=== PATIENT | male | born 1955 ===

== ENCOUNTER 2017-02-26 11:04 | Emergency (ER) | payer OTHER ==
[2017-02-26 12:52] LABS: BASO % 0.3 % (0.0-2.0); EOS # 0.2 K/uL (0.0-0.7); EOS % 1.9 % (0.0-4.0); HEMOGLOBIN 14.5 g/dL (12.0-18.0); LYMPH # 2.4 K/uL (1.0-4.3); LYMPH % 26.2 % (20.0-40.0); MEAN CELL VOLUME 85.6 fL (80.0-94.0); MEAN CORPUSCULAR HGB CONC 33.9 g/dL (33.0-37.0); MEAN PLATELET VOLUME 9.7 fL (7.2-11.7); MONO # 0.7 K/uL (0.0-0.8); MONO % 7.8 % (0.0-10.0); NEUT # 5.7 K/uL (1.8-7.0); NEUT % 63.8 % (50.0-75.0); RED CELL DISTRIBUTION WIDTH 13.9 % (11.5-14.5)
[2017-02-26 12:57] LABS: URINE BILIRUBIN NEGATIVE (NEGATIVE); URINE BLOOD 1+ (NEGATIVE); URINE CLARITY Clear (Clear); URINE COLOR Yellow (YELLOW); URINE GLUCOSE (UA) NORMAL (Normal); URINE LEUKOCYTE ESTERASE NEG Leu/uL (Negative); URINE NITRATE NEGATIVE (NEGATIVE); URINE PROTEIN 1+ mg/dL (NEGATIVE); URINE UROBILINOGEN NORMAL mg/dL (0.2-1.0)
--- NOTE | 2017-02-26 12:59 | C.PDOC ---
History Of Present Illness 61 y/o male presents to the ED c/o left rib cage and left shoulder pain for three days . The patient denies injuries. Patient sts he was seen by PMD yesterday, got Rx for Ibuprofen 600 mg without improvement. Time Seen by Provider: 02/26/17 11:30 Chief Complaint (Nursing): Rib Injury History Per: Patient Onset/Duration Of Symptoms: Days Current Symptoms Are (Timing): Still Present Additional History Per: Patient Past Medical History Reviewed: Historical Data, Nursing Documentation, Vital Signs Vital Signs: Last Vital Signs Temp 98.5 F 02/26/17 15:44 Pulse 83 02/26/17 15:44 Resp 20 02/26/17 15:44 BP 120/75 02/26/17 15:44 Pulse Ox 100 02/26/17 18:13 - Medical History PMH: Diabetes, HTN Denies: Chronic Kidney Disease Surgical History: No Surg Hx - [facility] Procedures DILATION OF 1 COR ART WITH DRUG-ELUT INTRA, PERC APPROACH (01/05/16) MEASURE OF CARDIAC SAMPL & PRESSURE, L HEART, PERC APPROACH (01/05/16) PLAIN RADIOGRAPHY OF LEFT HEART USING LOW OSMOLAR CONTRAST (01/05/16) Family History: States: No Known Family Hx - Social History Hx Tobacco Use: Yes (heavy smoker over 20 years >10 cig per day) Hx Alcohol Use: No Hx Substance Use: No - Immunization History Hx Tetanus Toxoid Vaccination: No Hx Influenza Vaccination: No Hx Pneumococcal Vaccination: No Review Of Systems Except As Marked, All Systems Reviewed And Found Negative. Cardiovascular: Negative for: Chest Pain Respiratory: Positive for: Other (pain of the left rib cage ). Negative for: Cough, Shortness of Breath Musculoskeletal: Positive for: Shoulder Pain (left ) Neurological: Negative for: Numbness Physical Exam - Physical Exam Appears: Non-toxic, No Acute Distress Skin: Warm, Dry Head: Atraumatic, Normacephalic Eye(s): bilateral: Normal Inspection Oral Mucosa: Moist Neck: Supple Chest: Symmetrical, No Deformity, No Tenderness, Other (non reproducible ) Cardiovascular: Rhythm Regular Respiratory: Normal Breath Sounds, No Rales, No Rhonchi Back: No CVA Tenderness, No Vertebral Tenderness, No Paraspinal Tenderness Extremity: Capillary Refill (2<sec.) Neurological/Psych: Oriented x3 Gait: Steady ED Course And Treatment - Laboratory Results Result Diagrams: 02/26/17 12:40 02/26/17 12:40 ECG Rhythm: Sinus Rhythm ECG Interpretation: No Acute Changes O2 Sat by Pulse Oximetry: 100 (RA) - Other Rad ribs with chest xray X-Ray: Viewed By Me, Read By Radiologist Interpretation: Accession No. : [id number]. Patient Name / ID : KYM Woods [id number]. Exam Date : 02/26/2017 12:18:25 ( Approved ). Study Comment : Sex / Age : M / 61Y. Creator : Ilene Gonzalez. Dictator : Ilene Gonzalez. Retail Pos Specialist : Property Specialist : Ilene Abad. Approver2 : Report Date : 02/26/2017 13:40:40. My Comment : . PROCEDURE: Radiographs of the Chest and Left Ribs. HISTORY: atraumatic pain. COMPARISON: None available. TECHNIQUE: Frontal radiograph of the chest and multiple oblique radiographs of the left ribs were obtained. FINDINGS: LEFT RIBS: No fracture or focal lesion visualized. LUNGS: Clear. PLEURA: No pneumothorax or pleural fluid. CARDIOVASCULAR: Probable top- normal heart size. No pulmonary vascular congestion. OTHER FINDINGS: Bilateral shoulder arthrosis. Thoracic spondylosis. IMPRESSION: No pneumothorax or effusion. . No left rib fracture. Bilateral shoulder arthrosis and thoracic spondylosis - CT Scan/US CTA chest Other Rad Studies (CT/US): Read By Radiologist, Radiology Report Reviewed CT/US Interpretation: Accession No. : [id number]. Patient Name / ID : KYM Woods [id number]. Exam Date : 02/26/2017 14:31:42 ( Approved ). Study Comment : Sex / Age : M / 61Y. Creator : Melody Bains MD. Dictator : Melody Bains MD. Retail Pos Specialist : Property Specialist : Melody Bains MD. Approver2 : Report Date : 02/26/2017 14:57:56. My Comment : . CTA chest PE protocol. Indication: left chest pain, elevated DDimer. Technique: Contiguous axial images were obtained through the chest with intravenous contrast enhancement. Sagittal and coronal reconstructions were generated and reviewed. This CT exam was performed using 1 or more of the falling dose reduction techniques: Automated exposure control, adjustment of the MAA and/or kV according to patient size, and/or use of iterative reconstruction technique. IV Contrast: 100 mL Visipaque IV. . Radiation dose (DLP): 516.27 MGy-cm. Comparison: Left ribs and chest radiographs performed 02/26/17. Findings: Visualized portions of the inferior thyroid gland appear unremarkable. The mediastinal and hilar vascular structures appear within normal limits. The heart appears within normal limits of size. Sub cm mediastinal/prevascular lymph nodes, nonspecific. No large central or segmental pulmonary embolus evident. No focal consolidation. No pleural effusion. No pneumothorax. No suspicious pulmonary nodules measuring greater than 5 mm. Limited visualized portions of the upper abdomen appear grossly unremarkable except for moderate diffuse constipation. Degenerative changes of the spine. Impression: No large central or segmental pulmonary embolus identified. Progress Note: Labs sent, negative cardiac enzymes, d dimer elevated, CTA chest ordered an dnegative for PE. Patient is stable to be d/c home with PMD follow up. Disposition - Disposition Referrals: Sharlene Chowdary MD [Staff Provider] - Disposition: HOME/ ROUTINE Disposition Time: 15:47 Condition: STABLE Additional Instructions: Follow up with PMD within 1-2 days. Return to ED if feel worse. Prescriptions: Lidocaine 5% [Lidoderm] 1 patch TP DAILY #30 patch oxyCODONE/Acetaminophen [Percocet 5/325 mg Tab] 1 tab PO QID PRN #20 tab PRN Reason: Pain Instructions: Shoulder Pain (ED) Forms: [employer] (Italian) - Clinical Impression Clinical Impression: Rib pain, Shoulder pain - PA / MULTIPLE SCLEROSIS NURSE / Resident Statement MD/DO has examined the patient and agrees with the treatment plan. - Scribe Statement Miladis Almeida
[2017-02-26 13:01] LABS: PROTHROMBIN TIME 10.9 SECONDS (9.7-12.2)
[2017-02-26 13:12] LABS: ALBUMIN 4.2 g/dL (3.5-5.0); ALT/SGPT 17 U/L (21-72); AST/SGOT 26 U/L (17-59); BLOOD UREA NITROGEN 13 mg/dL (9-20); CALCIUM 8.9 mg/dl (8.6-10.4); GFR AFRICAN-AMERICAN > 60; GFR NON-AFRICAN AMERICAN > 60
[2017-02-26 13:16] LABS: ALB/GLOB RATIO 0.9 (1.0-2.1)
[2017-02-26 13:23] LABS: CK-MB 1.72 ng/mL (0.0-3.38)
--- NOTE | 2017-02-26 13:42 | RAD ---
PROCEDURE: Radiographs of the Chest and Left Ribs. HISTORY: atraumatic pain COMPARISON: None available. TECHNIQUE: Frontal radiograph of the chest and multiple oblique radiographs of the left ribs were obtained. FINDINGS: LEFT RIBS: No fracture or focal lesion visualized. LUNGS: Clear. PLEURA: No pneumothorax or pleural fluid. CARDIOVASCULAR: Probable top-normal heart size. No pulmonary vascular congestion. OTHER FINDINGS: Bilateral shoulder arthrosis. Thoracic spondylosis IMPRESSION: No pneumothorax or effusion. . No left rib fracture. Bilateral shoulder arthrosis and thoracic spondylosis
[2017-02-26] MEDS ORDERED: Iodixanol 320 MG/ML 100 ML BOTTLE IV ONE (14:09)
--- NOTE | 2017-02-26 14:59 | CT ---
CTA chest PE protocol Indication: left chest pain, elevated DDimer Technique: Contiguous axial images were obtained through the chest with intravenous contrast enhancement. Sagittal and coronal reconstructions were generated and reviewed. This CT exam was performed using 1 or more of the falling dose reduction techniques: Automated exposure control, adjustment of the MAA and/or kV according to patient size, and/or use of iterative reconstruction technique. IV Contrast: 100 mL Visipaque IV Radiation dose (DLP): 516.27 MGy-cm. Comparison: Left ribs and chest radiographs performed 02/26/17 Findings: Visualized portions of the inferior thyroid gland appear unremarkable. The mediastinal and hilar vascular structures appear within normal limits. The heart appears within normal limits of size. Sub cm mediastinal/prevascular lymph nodes, nonspecific. No large central or segmental pulmonary embolus evident. No focal consolidation. No pleural effusion. No pneumothorax. No suspicious pulmonary nodules measuring greater than 5 mm. Limited visualized portions of the upper abdomen appear grossly unremarkable except for moderate diffuse constipation. Degenerative changes of the spine. Impression: No large central or segmental pulmonary embolus identified.
[2017-02-26 15:44] VITALS: BP 120/75; PULSE 83; RESP 20; TEMP 98.5
[2017-02-26 15:50] VITALS: O2SAT 100
== END 2017-02-26 15:53 | disposition home or self-care (01) ==
LOC: C.ER 11:04
DX: R07.81 Pleurodynia (principal); M25.512 Pain in left shoulder; E11.9 Type 2 diabetes mellitus without complications; I10 Essential (primary) hypertension; F17.210 Nicotine dependence, cigarettes, uncomplicated
CPT/HCPCS: 71101; 71275; 80053; 81001; 82550; 82553; 84484; 85025; 85378; 85610; 85730; 99285; Q9967

== ENCOUNTER 2017-09-09 13:39 | Emergency (ER) | payer MEDICAID, OTHER ==
[2017-09-09 13:50] VITALS: TEMP 98.5; O2SAT 98
--- NOTE | 2017-09-09 14:14 | RAD ---
Date of service: 09/09/2017 HISTORY: chest pain COMPARISON: Chest radiograph dated 02/26/2017. TECHNIQUE: Chest PA and lateral FINDINGS: LUNGS: No active pulmonary disease. PLEURA: No significant pleural effusion identified. No pneumothorax apparent. CARDIOVASCULAR: Normal. OSSEOUS STRUCTURES: Unchanged. VISUALIZED UPPER ABDOMEN: Normal. OTHER FINDINGS: None. IMPRESSION: No active disease.
[2017-09-09 14:23] LABS: BASO % 0.3 % (0.0-2.0); EOS # 0.1 K/uL (0.0-0.7); EOS % 1.5 % (0.0-4.0); HEMOGLOBIN 14.5 g/dL (12.0-18.0); MEAN CELL VOLUME 84.4 fL (80.0-94.0); MEAN CORPUSCULAR HEMOGLOBIN 29.6 pg (27.0-31.0); MEAN PLATELET VOLUME 9.7 fL (7.2-11.7); MONO # 0.7 K/uL (0.0-0.8); MONO % 9.8 % (0.0-10.0); NEUT # 4.7 K/uL (1.8-7.0); NEUT % 61.4 % (50.0-75.0); NRBC % 0.1 % (0.0-2.0); RBC 4.92 Mil/uL (4.40-5.90); WHITE BLOOD COUNT 7.6 K/uL (4.8-10.8)
--- NOTE | 2017-09-09 14:38 | C.PDOC ---
History Of Present Illness 62yo male, history of diabetes, comes to ER with complaints of sharp and stabbing pain to his left lateral chest wall x 5 days. Patient states the pain is intermittent, worsens with lying down and deep inspiration. He has not taken any medication for his symptoms and states the pain spontaneously resolves. He denies any cough, trouble eating or drinking, changes in bowel habits, abdominal pain, fever or chills. He also denies any known trauma or injuries. Patient offers no additional medical complaints. Time Seen by Provider: 09/09/17 13:55 Chief Complaint (Nursing): Abdominal Pain History Per: Patient History/Exam Limitations: no limitations Onset/Duration Of Symptoms: Days, Intermittent Episodes Current Symptoms Are (Timing): Still Present Quality Of Discomfort: Sharp, Stabbing Associated Symptoms: denies: Fever, Chills, Nausea, Vomiting Past Medical History Reviewed: Historical Data, Nursing Documentation, Vital Signs Vital Signs: Last Vital Signs Temp 98.5 F 09/09/17 13:48 Pulse 86 09/09/17 13:48 Resp 16 09/09/17 13:48 BP 135/89 09/09/17 13:48 Pulse Ox 98 09/09/17 14:44 - Medical History PMH: Diabetes, HTN Denies: Chronic Kidney Disease Surgical History: No Surg Hx - [facility] Procedures DILATION OF 1 COR ART WITH DRUG-ELUT INTRA, PERC APPROACH (01/05/16) MEASURE OF CARDIAC SAMPL & PRESSURE, L HEART, PERC APPROACH (01/05/16) PLAIN RADIOGRAPHY OF LEFT HEART USING LOW OSMOLAR CONTRAST (01/05/16) Family History: States: No Known Family Hx - Social History Hx Tobacco Use: Yes (heavy smoker over 20 years >10 cig per day) Hx Alcohol Use: No Hx Substance Use: No - Immunization History Hx Tetanus Toxoid Vaccination: No Hx Influenza Vaccination: No Hx Pneumococcal Vaccination: No Review Of Systems Constitutional: Negative for: Fever, Chills Cardiovascular: Positive for: Chest Pain (worse w/ lying down, deep inspiration) Respiratory: Negative for: Shortness of Breath Gastrointestinal: Negative for: Vomiting, Abdominal Pain, Diarrhea, Constipation Neurological: Positive for: Numbness (burning and numbness to bilateral feet) Physical Exam - Physical Exam Appears: Non-toxic, No Acute Distress Skin: Normal Color, Warm, Dry Head: Atraumatic, Normacephalic Eye(s): bilateral: Normal Inspection Oral Mucosa: Moist Neck: Normal ROM, Supple Chest: Symmetrical, Tenderness (along left chest wall lower ribs and costal margin) Cardiovascular: Rhythm Regular, No Murmur Respiratory: Normal Breath Sounds, No Rales, No Rhonchi, No Wheezing Gastrointestinal/Abdominal: Normal Exam, Soft, No Tenderness Back: Normal Inspection, No CVA Tenderness, No Vertebral Tenderness, No Paraspinal Tenderness Extremity: Normal ROM, No Pedal Edema Neurological/Psych: Oriented x3 ED Course And Treatment - Laboratory Results Result Diagrams: 09/09/17 14:16 09/09/17 14:16 Lab Interpretation: No Acute Changes ECG: Interpreted By Me ECG Rhythm: Sinus Rhythm ECG Interpretation: No Acute Changes O2 Sat by Pulse Oximetry: 98 (RA) Pulse Ox Interpretation: Normal - Radiology CXR: Viewed By Me, Read By Radiologist CXR Interpretation: Yes: No Acute Disease Progress Note: Labs, EKG, UA and CXR ordered Reevaluation Time: 15:34 Reassessment Condition: Improved (Patient is in no acute distress.) Disposition Counseled Patient/Family Regarding: Studies Performed, Diagnosis, Need For Followup, Rx Given - Disposition Referrals: Sharlene Chowdary MD [Staff Provider] - Disposition: HOME/ ROUTINE Disposition Time: 15:35 Condition: STABLE Prescriptions: Acetaminophen with Codeine [Tylenol with Codeine #3 Tablet] 1 each PO Q4 PRN # 10 tablet PRN Reason: Pain, Severe (8-10) Instructions: Costochondritis Forms: [facility] (Chinese) - Clinical Impression Clinical Impression: Chest wall pain - Scribe Statement The provider has reviewed the documentation as recorded by the Patricia Winn Provider Attestation: All medical record entries made by the Patricia were at my direction and personally dictated by me. I have reviewed the chart and agree that the record accurately reflects my personal performance of the history, physical exam, medical decision making, and the department course for this patient. I have also personally directed, reviewed, and agree with the discharge instructions and disposition.
[2017-09-09 14:44] LABS: ALB/GLOB RATIO 1.1 (1.0-2.1); ALBUMIN 4.4 g/dL (3.5-5.0); ALT/SGPT 25 U/L (21-72); AST/SGOT 18 U/L (17-59); BLOOD UREA NITROGEN 14 mg/dL (9-20); CALCIUM 9.6 mg/dl (8.6-10.4); GFR AFRICAN-AMERICAN > 60; GFR NON-AFRICAN AMERICAN > 60; LIPASE 52 U/L (23-300)
[2017-09-09 15:47] VITALS: BP 121/70; PULSE 74; RESP 18
[2017-09-09 15:51] LABS: SQUAMOUS EPITHIAL < 1 /hpf (0-5); URINE BILIRUBIN NEGATIVE (NEGATIVE); URINE BLOOD NEGATIVE (NEGATIVE); URINE CLARITY Clear (Clear); URINE COLOR Yellow (YELLOW); URINE GLUCOSE (UA) 3+ mg/dL (Normal); URINE LEUKOCYTE ESTERASE NEG Leu/uL (Negative); URINE PROTEIN 1+ mg/dL (NEGATIVE)
--- NOTE | 2017-09-10 11:29 | CARD ---
APPROVED REPORT Date of service: 09/09/2017 EKG Measurement Heart [id number] QTc0 <Conclusion> No QRS complexes found, no ECG analysis possible
== END 2017-09-09 15:47 | disposition home or self-care (01) ==
LOC: C.ER 13:39
DX: R07.89 Other chest pain (principal); I10 Essential (primary) hypertension; E11.9 Type 2 diabetes mellitus without complications; F17.210 Nicotine dependence, cigarettes, uncomplicated

== ENCOUNTER 2018-04-05 10:43 | Emergency (ER) | payer MEDICAID, OTHER ==
[2018-04-05 10:58] VITALS: BP 118/81; PULSE 104; RESP 20; TEMP 98.4; O2SAT 99
[2018-04-05] MEDS ORDERED: Albuterol-Ipratrop 3 mg / 0.5 (3 ml) UD INH STA (11:40)
[2018-04-05] MEDS ORDERED: Albuterol-Ipratrop 3 mg / 0.5 (3 ml) UD ONE (11:51)
--- NOTE | 2018-04-05 12:21 | C.PDOC ---
History Of Present Illness 62 y/o male presents to the ED with complaints of cough and cold for the past 2 days. He reports fever, nausea, and coughing a lot. States his girlfriend is sick with similar complaints. Patient is a smoker. Denies any known medical problems. Otherwise he denies any chest pain, SOB, vomiting, or diarrhea. Time Seen by Provider: 04/05/18 11:20 Chief Complaint (Nursing): Cough, Cold, Congestion History Per: Patient History/Exam Limitations: no limitations Onset/Duration Of Symptoms: Days (2) Current Symptoms Are (Timing): Still Present Associated Symptoms: Fever, Cough, Nausea Past Medical History Reviewed: Historical Data, Nursing Documentation, Vital Signs Vital Signs: Last Vital Signs Temp 98.4 F 04/05/18 10:52 Pulse 104 H 04/05/18 10:52 Resp 20 04/05/18 10:52 BP 118/81 04/05/18 10:52 Pulse Ox 99 04/05/18 10:52 - Medical History PMH: Diabetes, HTN Denies: Chronic Kidney Disease - [facility] Procedures DILATION OF 1 COR ART WITH DRUG-ELUT INTRA, PERC APPROACH (01/05/16) MEASURE OF CARDIAC SAMPL & PRESSURE, L HEART, PERC APPROACH (01/05/16) PLAIN RADIOGRAPHY OF LEFT HEART USING LOW OSMOLAR CONTRAST (01/05/16) Family History: States: Unknown Family Hx - Social History Hx Tobacco Use: Yes (heavy smoker over 20 years >10 cig per day) Hx Alcohol Use: No Hx Substance Use: No - Immunization History Hx Tetanus Toxoid Vaccination: No Hx Influenza Vaccination: No Hx Pneumococcal Vaccination: No Review Of Systems Constitutional: Positive for: Fever. Negative for: Weakness Eyes: Negative for: Redness, Other (scleral icterus) ENT: Negative for: Mouth Swelling Cardiovascular: Negative for: Chest Pain Respiratory: Positive for: Cough. Negative for: Shortness of Breath, Wheezing Gastrointestinal: Positive for: Nausea. Negative for: Vomiting, Diarrhea Genitourinary: Negative for: Dysuria, Hematuria Musculoskeletal: Negative for: Back Pain Skin: Negative for: Rash Neurological: Negative for: Weakness, Numbness Physical Exam - Physical Exam Appears: Well, Non-toxic, No Acute Distress Skin: Normal Color, Warm, No Rash Head: Atraumatic, Normacephalic Eye(s): bilateral: Normal Inspection (no scleral icterus), PERRL, EOMI Ear(s): Bilateral: Normal (no drainage) Nose: Normal Throat: Normal (no swelling or injection), No Exudate Neck: Normal ROM, Supple Chest: Symmetrical Cardiovascular: Rhythm Regular, No Murmur Respiratory: No Accessory Muscle Use, No Rhonchi, Wheezing (diffusely), Other (dry cough noted) Gastrointestinal/Abdominal: Soft, No Tenderness, No Distention Extremity: Bilateral: Atraumatic, Normal ROM Pulses: Left Radial: Normal, Right Radial: Normal Neurological/Psych: Oriented x3, Normal Cranial Nerves ED Course And Treatment O2 Sat by Pulse Oximetry: 99 (RA) Pulse Ox Interpretation: Normal - Other Rad CXR X-Ray: Read By Radiologist Interpretation: Accession No. : [id number]. Patient Name / ID : KYM ACOSTA / [id number]. Exam Date : 04/05/2018 11:48:28 ( Approved ). Study Comment : S ex / Age : M / 62Y. Creator : Melody Bains MD. Dictator : Melody Bains MD. Director Of Enterprise Strategy : Optimization Engineer : Melody Bains MD. Approver2 : Report Date : 04/05/2018 13:30:18. My Comment : . HISTORY: pneumonia. COMPARISON: Chest x-ray performed 09/09/17, CT of the chest performed 02/26/17. TECHNIQUE: Chest PA and lateral. FINDINGS: LUNGS: Mild left basilar atelectasis/infiltrate. 5 mm nodular opacity at the right lung base, possibly nipple shadow. Please note that chest x-ray has limi larisa sensitivity for the detection of pulmonary masses. PLEURA: No significant pleural effusion identified. No definite pneumothorax . CARDIOVASCULAR: Heart size appears top normal. Faint atherosclerotic calcifications. OSSEOUS STRUCTURES: Degenerative changes. VISUALIZED UPPER ABDOMEN: Unremarkable. OTHER FINDINGS: None. IMPRESSION: Mild left basilar atelectasis/infiltrate. 5 mm nodular opacity at the right lung base, possibly nipple shadow. Medical Decision Making Medical Decision Making: Impression: Cough, r/o pneumonia Initial Plan: - Flu swab - Chest x-ray - Duoneb x1 Disposition Counseled Patient/Family Regarding: Studies Performed, Diagnosis, Need For Followup, Rx Given - Disposition Disposition: HOME/ ROUTINE Disposition Time: 13:19 Condition: IMPROVED Prescriptions: Albuterol HFA [Ventolin HFA 90 mcg/actuation (8 g)] 2 puff IH [id number] #1 inhaler Instructions: Acute Bronchitis, Adult (DC) Forms: [employer] (Lao), General Discharge Instructions - POA Present On Arrival: None - Clinical Impression Clinical Impression: Bronchitis - PA / OUTSIDE SALES INSPECTOR / Resident Statement MD/DO has reviewed & agrees with the documentation as recorded. - Scribe Statement The provider has reviewed the documentation as recorded by the Scribe Vickie Addison All medical record entries made by the Scribe were at my direction and personally dictated by me. I have reviewed the chart and agree that the record accurately reflects my personal performance of the history, physical exam, medical decision making, and the department course for this patient. I have also personally directed, reviewed, and agree with the discharge instructions and disposition.
--- NOTE | 2018-04-05 13:34 | RAD ---
HISTORY: pneumonia COMPARISON: Chest x-ray performed 09/09/17, CT of the chest performed 02/26/17 TECHNIQUE: Chest PA and lateral FINDINGS: LUNGS: Mild left basilar atelectasis/infiltrate. 5 mm nodular opacity at the right lung base, possibly nipple shadow. Please note that chest x-ray has limited sensitivity for the detection of pulmonary masses. PLEURA: No significant pleural effusion identified. No definite pneumothorax . CARDIOVASCULAR: Heart size appears top normal. Faint atherosclerotic calcifications. OSSEOUS STRUCTURES: Degenerative changes. VISUALIZED UPPER ABDOMEN: Unremarkable. OTHER FINDINGS: None. IMPRESSION: Mild left basilar atelectasis/infiltrate. 5 mm nodular opacity at the right lung base, possibly nipple shadow.
== END 2018-04-05 13:27 | disposition home or self-care (01) ==
LOC: C.ER 10:43
DX: J40 Bronchitis, not specified as acute or chronic (principal); E11.9 Type 2 diabetes mellitus without complications; I10 Essential (primary) hypertension; F17.210 Nicotine dependence, cigarettes, uncomplicated